=== PATIENT | male | born 1990 | race Caucasian/White ===

== ENCOUNTER → 2025-06-09 12:34 | Outpatient (REF) | payer BC, SELFPAY | LOC: RAD 12:34 | PROVIDERS: ATTENDING PHYSICIAN Family Medicine | DX: R07.89 Other chest pain (principal) | CPT/HCPCS: 71046 ==

== ENCOUNTER → 2025-07-02 08:39 | Outpatient (REF) | payer BC, SELFPAY | LOC: RSP 08:39 | PROVIDERS: ATTENDING PHYSICIAN Family Medicine | DX: R07.89 Other chest pain (principal) | CPT/HCPCS: 94010; 94727; 94729 ==